=== PATIENT | female | born 1985 | race Hispanic/Latino ===

== ENCOUNTER 2018-01-20 09:05 | Emergency (ER) | payer SELFPAY ==
[2018-01-20 09:55] LABS: Bilirubin Negative (Negative); Blood, Urine Moderate (Negative); Clarity Slightly Cloudy (Clear); Glucose, Urine (Dipstick) Negative (Negative); Leukocyte Negative (Negative); Nitrite Positive (Negative); Protein, Urine (Dipstick) Negative (Neg-Trace); Urobilinogen 0.2 mg/dL (0.2-1.0)
[2018-01-20 09:58] LABS: Pregnancy Test - Urine (BHCG) Negative (Negative); Pregu Control Background? CLEAR/WHITE (CLR/WHITE); Pregu Control Bar Appear? YES (CONTROL BAR)
[2018-01-20 10:09] LABS: Bacteria/HPF 4+ HPF (None Seen)
--- NOTE | 2018-01-20 12:00 | CT ---
RENAL STONE CT PROTOCOL: HISTORY: Microhematuria. Abdominal pain. TECHNIQUE: Noncontrast enhanced CT images of the abdomen and pelvis are obtained. IV and oral contrast were not given. FINDINGS: The lung bases are unremarkable. No evidence of free intraperitoneal air is seen. The liver and spleen are unremarkable. The gallbladder and pancreas are unremarkable. The adrenal g lands are unremarkable. There are some nonobstructing right upper and lower pole renal calculi seen. A tiny renal calculus may also be present in the lower calices of the left kidney. There is mild r ight renal pelvic and ureteral dilatation seen. The distal ureters are difficult to discern from zach rounding soft tissues. I do not see obvious renal calculi along the expected course of the ureters. Two small right pelvic phleboliths are present. There is a small area of soft tissue thickening at the posterior aspect of the right urinary bladder, possibly representing a bladder mass. Correlate with direct visualization. The small bowel loops a re not dilated. A moderate amount of stool is seen in the colon. IMPRESSION: 1. Nonobstructing bilateral renal calculi. 2. Possible urinary bladder mass. If there is concern for possible ureteral pathology, correlate wi th retrograde evaluation. POS: [facility]
== END 2018-01-20 12:10 | disposition home or self-care (01) ==
LOC: SCSER 09:05
DX: N20.0 Calculus of kidney (principal); M54.6 Pain in thoracic spine; G43.909 Migraine, unspecified, not intractable, without status migrainosus; F32.9 Major depressive disorder, single episode, unspecified; F41.9 Anxiety disorder, unspecified
CPT/HCPCS: 74176; 81003; 81015; 81025; 87077; 87086; 87186

== ENCOUNTER 2018-05-02 08:01 | Emergency (ER) | payer OTHER ==
[2018-05-02 08:42] LABS: Bilirubin Moderate (Negative); Blood, Urine Small (Negative); Clarity Cloudy (Clear); Glucose, Urine (Dipstick) Negative (Negative); Leukocyte Negative (Negative); Nitrite Negative (Negative); Protein, Urine (Dipstick) Trace mg/dL (Neg-Trace); Specific Gravity, Urine 1.025 (1.005-1.030); pH, Urine 6.5 (5.0-9.0)
[2018-05-02 08:48] LABS: Bacteria/HPF 2+ HPF (None Seen); Hyaline Casts/LPF NONE SEEN LPF (0-3 Hyaline); RBC/HPF 0-3 HPF (0-3); WBC/HPF 0-3 HPF (0-3); Yeast-All Forms Rare HPF (None Seen)
== END 2018-05-02 09:19 | disposition home or self-care (01) ==
LOC: SCSER 08:01
DX: F41.9 Anxiety disorder, unspecified (principal); E86.0 Dehydration; R82.71 Bacteriuria; Z87.448 Personal history of other diseases of urinary system
CPT/HCPCS: 81003; 81015; 87086; 99284